=== PATIENT | male | born 1980 | race Caucasian/White ===

== ENCOUNTER 2017-07-01 05:24 | Emergency (ER) | payer OTHER, SELFPAY ==
[2017-07-01 05:41] VITALS: BP 184/95; PULSE 97; RESP 18; TEMP 36.3; O2SAT 99; BMI 35.2
--- NOTE | 2017-07-01 05:57 | ED.ABDPAIN ---
HPI - Abdominal Pain General Chief Complaint: Skin/Abscess/Foreign Body Stated Complaint: HAVING A HARD BOWEL MOVEMENT, SHAKES Time Seen by Provider: 07/01/17 05:45 Source: patient and RN notes reviewed Mode of arrival: ambulatory Limitations: no limitations History of Present Illness HPI narrative: Patient is a 37-year-old male who presents with rectal pressure. He has been constipated last couple of days he had a bowel movement yesterday. He is worried because he still feels pressure in his rectum. A few years back he had subcutaneous abscess on his buttock. He required antibiotics and it drained spontaneously. He is worried he might have 1 now. He has not had any fever or chills he has no abdominal pain nausea or vomiting. He has no buttock pain and he does not feel any swelling or lumps. MD complaint: other (Rectal pain) Related Data Allergies Allergy/AdvReac Type Severity Reaction Status Date / Time No Known Drug Allergies Allergy Verified 07/01/17 06:01 Review of Systems Review of Systems All systems reviewed & are unremarkable except as noted in HPI and below Constitutional Denies chills, Denies fever(s), Denies lethargy and Denies weakness Cardiovascular Denies dyspnea and Denies dyspnea on exertion Respiratory Denies cough, Denies dyspnea, Denies dyspnea on exertion and Denies wheezing Gastrointestinal Gastrointestinal: Reports as per HPI and Reports system reviewed and no additional complaints, except as docu Integumentary/Breasts Denies pruritus, Denies erythema, Denies rash, Denies skin pain, Denies skin swelling, Denies sores and Denies wounds Neurologic Denies weakness Allergic/Immunologic Denies wheezing PFSH Medical History Skin abscess (Acute) Social History Smoking Status: Never smoker alcohol intake: never substance use type: does not use Exam Initial Vital Signs Initial Vital Signs: Vital Signs Temperature 97.4 F L 07/01/17 05:41 Pulse Rate 97 H 07/01/17 05:41 Respiratory Rate 18 07/01/17 05:41 Blood Pressure 184/95 H 07/01/17 05:41 Pulse Oximetry 99 07/01/17 05:41 Const General: cooperative and well developed Nutritional Appearance: well nourished Orientation: alert, awake, oriented x3 and not confused Chest Chest: normal inspection of the chest Resp Effort & Inspection: normal respiratory effort and able to speak in complete sentences Cardio Pulses: normal peripheral pulses GI Rectal Exam: visual inspection normal, normal sphincter tone, prostate normal, No fecal impaction, No hemorrhoids and No laceration Skin General: no rashes or lesions noted, No jaundice and No petechiae Lesions: no lesions Rashes: no rashes Wounds: no wounds Course Vital Signs - 8 hr 07/01/17 05:41 Temperature 97.4 F L Pulse Rate 97 H Respiratory Rate 18 Blood Pressure 184/95 H Pulse Oximetry 99 MDM - Abdominal Pain MDM Narrative Medical decision making narrative: Patient is extremely worried that his abscess is back even though he has no buttock pain. His buttock and rectal area do not show any sign of internal or external all abscess. He is not febrile. He is able to sit without any difficulty. Do not suspect a internal abscess his rectal exam was not painful. Patient is reassured and instructed to take [id number] constipation medication. Discharge Plan Departure Patient Disposition: Home, Self-Care Clinical Impression: Constipation Discharge Date/Time: 07/01/17 06:18 Instructions: Constipation Activity Restrictions/Additional Instructions: *You have been diagnosed with constipation *What to do: High-fiber diet, increase fluids, recommend [id number] prune juice *Take medications as directed -MiraLax once a day, or Colace as needed 1-2 times daily *Follow up with your primary care provider in 2-3 days *Return to ER if you should have any new, worsening or concerning symptoms
== END 2017-07-01 06:18 | disposition home or self-care (01) ==
PROVIDERS: Emergency Provider Emergency Medicine
DX: K59.00 Constipation, unspecified (principal)
CPT/HCPCS: 99282